=== PATIENT | male | born 1950 ===

== ENCOUNTER 2018-03-14 14:55 | Emergency (ER) | payer MEDICARE, MEDICAID ==
[2018-03-14 14:56] VITALS: BMI 24.6
[2018-03-14 15:53] LABS: BASO # 0.1 K/uL (0.0-0.2); BASO % 0.5 % (0.0-2.0); EOS # 0.2 K/uL (0.0-0.7); HEMOGLOBIN 14.1 g/dL (12.0-18.0); MONO # 0.6 K/uL (0.0-0.8); NEUT # 8.4 K/uL (1.8-7.0); WHITE BLOOD COUNT 10.2 K/uL (4.8-10.8)
[2018-03-14 15:58] LABS: EOS % 2.1 % (0.0-4.0); LYMPH # 0.9 K/uL (1.0-4.3); LYMPH % 8.9 % (20.0-40.0); MEAN CELL VOLUME 88.1 fL (80.0-94.0); MEAN CORPUSCULAR HEMOGLOBIN 29.4 pg (27.0-31.0); MEAN CORPUSCULAR HGB CONC 33.4 g/dL (33.0-37.0); MEAN PLATELET VOLUME 8.8 fL (7.2-11.7); MONO % 5.7 % (0.0-10.0); NEUT % 82.8 % (50.0-75.0); NRBC % 0.1 % (0.0-2.0); PLATELET COUNT 236 K/uL (130-400); RBC 4.79 Mil/uL (4.40-5.90); RED CELL DISTRIBUTION WIDTH 13.7 % (11.5-14.5)
--- NOTE | 2018-03-14 16:08 | RAD ---
HISTORY: chest pain COMPARISON: Time of the most recent examination: Varying TECHNIQUE: Chest PA and lateral FINDINGS: LUNGS: No active pulmonary disease. PLEURA: No significant pleural effusion identified. No pneumothorax apparent. CARDIOVASCULAR: No radiographic findings to suggest acute or significant cardiovascular disease. OSSEOUS STRUCTURES: No significant abnormalities. VISUALIZED UPPER ABDOMEN: Normal. OTHER FINDINGS: None. IMPRESSION: No active disease.
--- NOTE | 2018-03-14 16:39 | CT ---
PROCEDURE: CT HEAD WITHOUT CONTRAST. HISTORY: dizziness COMPARISON: None available. TECHNIQUE: Axial computed tomography images were obtained through the head/brain without intravenous contrast. Radiation dose: Total exam DLP = 784.70 mGy-cm. This CT exam was performed using one or more of the following dose reduction techniques: Automated exposure control, adjustment of the mA and/or kV according to patient size, and/or use of iterative reconstruction technique. FINDINGS: HEMORRHAGE: No intracranial hemorrhage. BRAIN: No mass effect or edema. Moderate diffuse atrophy. Severe chronic periventricular white matter lucency with patchy and confluent deep and subcortical white matter lucency consistent with microvascular ischemic change. No evidence of acute infarct. 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 VENTRICLES: Unremarkable. No hydrocephalus. CALVARIUM: Unremarkable. PARANASAL SINUSES: Mild chronic frontal, ethmoid and sphenoid sinusitis. MASTOID AIR CELLS: Unremarkable as visualized. No inflammatory changes. OTHER FINDINGS: None. IMPRESSION: Atrophy. Severe chronic white matter ischemic change. 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 No evidence of acute infarct. No intracranial mass or hemorrhage. Chronic paranasal sinusitis.
[2018-03-14 17:00] LABS: EOSINOPHIL 2 % (0-4); LYMPHOCYTE 10 % (20-40); MONOCYTE 7 % (0-10); NEUTROPHIL 81 % (50-75); PLATELET ESTIMATE NORMAL (NORMAL); TOTAL CELLS COUNTED 100
--- NOTE | 2018-03-14 17:00 | C.PDOC ---
History Of Present Illness 68yo male, brought to ER by EMS for evaluation after patient was found confused outside. Currently, the patient is alert and oriented x 2 and states he has a history of forgetfulness; patient states he was attempting to visit a friend. He denies any medical complaints. Time Seen by Provider: 03/14/18 15:21 Chief Complaint (Nursing): Medical Clearance History Per: Patient, EMS History/Exam Limitations: Clinical Condition Past Medical History Reviewed: Historical Data, Nursing Documentation, Vital Signs Vital Signs: Last Vital Signs Temp 98.1 F 03/14/18 21:12 Pulse 77 03/14/18 21:12 Resp 20 03/14/18 21:12 BP 128/79 03/14/18 21:12 Pulse Ox 95 03/14/18 21:12 - Medical History PMH: CVA, Dementia Denies: Diabetes, Hepatitis, HIV, HTN, Seizures, Sexually Transmitted Disease Family History: States: Unknown Family Hx - Social History Hx Alcohol Use: No Hx Substance Use: No Review Of Systems Except As Marked, All Systems Reviewed And Found Negative. Constitutional: Negative for: Fever, Chills Cardiovascular: Negative for: Chest Pain Respiratory: Negative for: Shortness of Breath Gastrointestinal: Negative for: Abdominal Pain Physical Exam - Physical Exam Appears: Non-toxic, No Acute Distress Skin: Warm, Dry Head: Atraumatic, Normacephalic Eye(s): bilateral: Normal Inspection, PERRL Neck: Normal ROM, Supple Chest: Symmetrical Cardiovascular: Rhythm Regular Respiratory: Normal Breath Sounds, No Wheezing Gastrointestinal/Abdominal: Normal Exam, Bowel Sounds, Soft Back: Normal Inspection Extremity: Normal ROM Neurological/Psych: Other (alert and oriented x 2) ED Course And Treatment - Laboratory Results Result Diagrams: 03/14/18 15:50 03/14/18 16:54 ECG: Interpreted By Me, Viewed By Me ECG Rhythm: Sinus Rhythm ECG Interpretation: Normal Interpretation Of ECG: Normal intervals, no ST/T changes Rate From EC O2 Sat by Pulse Oximetry: 95 (RA) Pulse Ox Interpretation: Normal Medical Decision Making Medical Decision Making: Impression: Dementia Plan: -- EKG -- Labs -- CXR Spoke with Marissa, patient's contact, 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 Disposition Counseled Patient/Family Regarding: Studies Performed, Diagnosis - Disposition Disposition: HOME/ ROUTINE Disposition Time: 18:32 Condition: STABLE Additional Instructions: you are discharged to [place] follow up with your doctor in 2 days call to make an appointment take medications as prescribed return to ER if symptoms worsens or progress Instructions: Mild Cognitive Impairment Forms: Gen Discharge Inst Angolan, [employer] [facility] (Angolan) Print Language: ENGLISH - Clinical Impression Clinical Impression: Dementia - Scribe Statement The provider has reviewed the documentation as recorded by the Scribe (Jolie Garcia) Provider Attestation: All medical record entries made by the Scribe were at my direction and personally dictated by me. I have reviewed the chart and agree that the record accurately reflects my personal performance of the history, physical exam, medical decision making, and the department course for this patient. I have also personally directed, reviewed, and agree with the discharge instructions and disposition.
[2018-03-14 17:26] LABS: ALB/GLOB RATIO 1.1 (1.0-2.1); ALBUMIN 3.8 g/dL (3.5-5.0); ALT/SGPT 67 U/L (21-72); AST/SGOT 46 U/L (17-59); BLOOD UREA NITROGEN 15 mg/dL (9-20); CALCIUM 9.2 mg/dl (8.6-10.4); GFR AFRICAN-AMERICAN > 60; GFR NON-AFRICAN AMERICAN > 60
[2018-03-14 18:33] VITALS: O2SAT 95
[2018-03-14 21:23] VITALS: BP 128/79; PULSE 77; RESP 20; TEMP 98.1
--- NOTE | 2018-03-15 15:11 | CARD ---
APPROVED REPORT EKG Measurement Heart [id number] AK 158P [id number] <Conclusion> Normal sinus rhythm Normal ECG
== END 2018-03-14 21:24 | disposition home or self-care (01) ==
LOC: C.ER 14:55
DX: F03.90 Unspecified dementia, unspecified severity, without behavioral disturbance, psychotic disturbance, mood disturbance, and anxiety (principal); Z86.73 Personal history of transient ischemic attack (TIA), and cerebral infarction without residual deficits